=== PATIENT | male | born 1980 | race Caucasian/White ===

== ENCOUNTER 2017-09-03 10:25 | Emergency (ER) | payer OTHER ==
[~2017-09-03] VITALS: Ht 185.4 cm; Wt 104.3 kg
[~2017-09-03 10:25] MED LIST: CYMBALTA 20 MG20 MG PO; FLEXERIL10 MG PO; MOTRIN 600 MG600 MG PO; MOTRIN800 MG PO; PERCOCET 325 MG1 TA2 PO; PREDNISONE 20MG20 MG PO
[2017-09-03 12:35] VITALS: BP 161/75
[2017-09-03] MEDS ORDERED: KEFLEX500 M1 PO (12:52)
[2017-09-03] MEDS ORDERED: BETAMETHASONE D15 G4 TOP (12:52)
--- NOTE | 2017-09-03 12:57 | ED GENERAL ADULT ---
History of Present Illness General Chief Complaint: Skin Rash/ Abcess Stated Complaint: BLISTER/RASH R WRIST Source: patient Exam Limitations: no limitations Vital Signs & Intake/Output Vital Signs & Intake/Output Vital Signs Date Time Temp Pulse Resp B/P B/P Pulse O2 O2 Flow FiO2 Mean Ox Delivery Rate 09/03 1235 97.6 89 20 161/75 98 Room Air 09/03 1031 98.9 96 20 150/80 98 Room Air Allergies Uncoded Allergies: CRAB CAKES (Intermediate, HIVES 10/02/14) SEASONAL (10/02/14) Reconcile Medications Betamethasone Dipropionate 0.05 % CREAM..G. 1 EDU TOP BID poison goyo apply to affected area(s) Cephalexin (Keflex) 500 MG CAPSULE 1 CAP PO FOUR TIMES A DAY cellulitis Take 500mg 4 times a day for seven days CYCLOBENZAPRINE HCL (Flexeril) 10 MG TABLET 1 TAB PO TID PRN PAIN CYCLOBENZAPRINE HCL (Flexeril) 10 MG TABLET 1 TAB PO TID PRN STRAIN Avoid operating motor vehicle or heavy machinery Duloxetine Hydrochloride (Cymbalta) 20 MG CAPSULE.DR 2 CAP PO DAILY ANXIETY ( Reported) Ibuprofen (Motrin) 800 MG TAB 1 TAB PO Q6HR PRN PAIN Ibuprofen (Motrin 600 MG Tab) 600 MG TABLET 1 TAB PO Q6P PRN PAIN OXYCODONE HCL/ACETAMINOPHEN (Percocet 5-325 MG Tablet) 325 MG/5 MG TAB 1 TAB PO Q4-6 PRN PRN PAIN OXYCODONE HCL/ACETAMINOPHEN (Percocet 5-325 MG Tablet) 325 MG/5 MG TAB 1-2 TAB PO Q4-6 PRN PRN SEVERE PAIN Prednisone 20 MG TABLET 2 TAB PO DAILY ALLERGIC REACTION Triage Note: PT TO ED C/O BLISTER/RASH TO RIGHT WRIST, NOTICED ON MONDAY. STATES NUMBNESS AROUND AREA WITH DISCHARGE OF CLEAR LIQUID. Triage Nurses Notes Reviewed? yes Onset: Gradual Duration: day(s): Timing: ongoing Severity: moderate Associated Symptoms: no systemic symptoms HPI: This is an otherwise healthy 29-year-old male presenting to the emergency department with 3 days of progressive rash to his right wrist. 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 The rash first started as a localized area of erythema to the right anterior wrist. It is since locally spread to involve the majority of the right anterior aspect and right posterior aspect of his wrist with some vesicles and erythema. There is minimal warmth. Minimal tenderness. He also has a small lesion on the left wrist as well. He has had no systemic symptoms, tolerating good p.o., afebrile on arrival and otherwise well-appearing. Past History Travel History Traveled to [place] past 21 day No Medical History Any Pertinent Medical History? 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 No Review of Systems Review of Systems Constitutional: Reports: no symptoms. EENTM: Reports: no symptoms. Respiratory: Reports: no symptoms. Cardiovascular: Reports: no symptoms. GI: Reports: no symptoms. Genitourinary: Reports: no symptoms. Musculoskeletal: Reports: no symptoms. Skin: Reports: rash. Neurological/Psychological: Reports: no symptoms. Hematologic/Endocrine: Reports: no symptoms. Immunologic/Allergic: Reports: no symptoms. Physical Exam Physical Exam General Appearance: well developed/nourished, no apparent distress, alert, awake , anxious Head: atraumatic, normal appearance Eyes: Bilateral: normal appearance. Ears, Nose, Throat: normal pharynx, normal ENT inspection, hearing grossly normal Neck: normal inspection, supple, full range of motion Respiratory: normal breath sounds, chest non-tender, no respiratory distress Cardiovascular: regular rate/rhythm Gastrointestinal: soft, non-tender Rectal: deferred Back: normal range of motion Extremities: normal inspection, normal capillary refill, normal range of motion Skin: Area of erythema to right wrist; some clear blisters; mild surrounding warmth. Left wrist with 1 quare cm of eythema, papular w/o any skin breakdown or blistering Core Measures ACS in differential dx? No CVA/TIA Diagnosis: No Sepsis Present: No Sepsis Focused Exam Completed? No Progress Differential Diagnoses I considered the following diagnoses in my evaluation of the patient: Poison goyo dermatitis, cellulitis, low suspicion for abscess. Low suspicion for zoster, doubt acute traumatic process. Plan of Care: Patient will be discharged home with plan for topical steroid in addition to Keflex for mild concern for developing opportunistic cellulitis Initial ED EKG: none Departure Departure Disposition: HOME OR SELF CARE Condition: Stable Clinical Impression Primary Impression: Poison goyo dermatitis Referrals: Nelson Quiles DO (PCP/Family) Additional Instructions: Please follow-up with your primary provider this week for reassessment. I recommend that you use the topical steroid as prescribed until the symptoms improve. Do not use the steroids for longer than 1 week. Departure Forms: Customer Survey General Discharge Information Prescriptions: Current Visit Scripts Betamethasone Dipropionate 1 EDU TOP BID #15 GM apply to affected area(s) Cephalexin (Keflex) 1 CAP PO FOUR TIMES A DAY #30 CAP Take 500mg 4 times a day for seven days Critical Care Note Critical Care Note Critical Care Time: non-applicable
== END 2017-09-03 13:08 ==
LOC: ERH 10:25
DX: L23.7 Allergic contact dermatitis due to plants, except food (principal)